=== PATIENT | male | born 1995 | race Caucasian/White ===

== ENCOUNTER 2020-06-01 08:52 | Emergency (ER) | payer SELFPAY ==
--- NOTE | 2020-06-01 09:51 | EDM.PDOC ---
ED HPI GENERAL MEDICAL PROBLEM - General Chief Complaint: Chest Pain Stated Complaint: CHEST PAIN Time Seen by Provider: 06/01/20 09:19 Source of Information: Reports: Patient, RN Notes Reviewed - History of Present Illness INITIAL COMMENTS - FREE TEXT/NARRATIVE: 25 yr old male with onset of palpitations during the night that have continued this morning. It seems to him that there is irregularity or fluttering type sensation but than he feels that his heart "is racing and pounding" He started getting some numbness in his hands and feet, at that point decided to come to the ED. He has not been ill. No recent cough, fever, chills or dyspnea. Left Chest Pain Score (Numeric/FACES): 2 - Related Data Allergies Allergy/AdvReac Type Severity Reaction Status Date / Time No Known Allergies Allergy Verified 06/01/20 09:08 Home Meds: Home Meds . [No Known Home Meds] 06/01/20 [History] Past Medical History Cardiovascular History: Reports: Other (See Below) Other Cardiovascular History: aortic stenosis Social & Family History - Tobacco Use Smoking Status *Q: Current Every Day Smoker Years of Tobacco use: 10 Packs/Tins Daily: 1 ED ROS GENERAL - Review of Systems Review Of Systems: See Below Constitutional: Denies: Fever, Chills, Diaphoresis HEENT: Reports: No Symptoms Respiratory: Denies: Shortness of Breath, Pleuritic Chest Pain, Cough Cardiovascular: Reports: Chest Pain, Lightheadedness, Palpitations GI/Abdominal: Denies: Abdominal Pain, Nausea, Vomiting Musculoskeletal: Denies: Shoulder Pain, Arm Pain, Back Pain Skin: Reports: No Symptoms Neurological: Reports: Dizziness ED EXAM, GENERAL - Physical Exam Exam: See Below General Appearance: Alert, No Apparent Distress Head: Atraumatic Neck: Supple Respiratory/Chest: No Respiratory Distress, Lungs Clear, Normal Breath Sounds Cardiovascular: Regular Rate, Rhythm, No Murmur GI/Abdominal: Soft, Non-Tender Back Exam: No: CVA Tenderness (L), CVA Tenderness (R) Extremities: No: Pedal Edema, Leg Pain, Increased Warmth, Redness EKG INTERPRETATION EKG Date: 06/01/20 Rhythm: NSR [place]: Normal P-Wave: Present QRS: Normal ST-T: Normal Course - Vital Signs Last Recorded V/S: Last Vital Signs Temp 97.8 F 06/01/20 09:03 Pulse 66 06/01/20 09:03 Resp 16 06/01/20 09:03 BP 144/94 H 06/01/20 09:03 Pulse Ox 98 06/01/20 09:03 - Orders/Labs/Meds Labs: Laboratory Tests 06/01/20 06/01/20 Range/Units 09:40 09:40 WBC 7.35 (4.23-9.07) K/mm3 RBC 5.80 (4.63-6.08) M/mm3 Hgb 15.4 (13.7-17.5) gm/dl Hct 46.6 (40.1-51.0) % MCV 80.3 (79.0-92.2) fl MCH 26.6 (25.7-32.2) pg MCHC 33.0 (32.2-35.5) g/dl RDW Std Deviation 40.5 (35.1-43.9) fL Plt Count 314 (163-337) K/mm3 MPV 10.3 (9.4-12.3) fl Neut % (Auto) 56.2 (34.0-67.9) % Lymph % (Auto) 30.6 (21.8-53.1) % [place] % (Auto) 7.2 (5.3-12.2) % Eos % (Auto) 4.8 (0.8-7.0) Baso % (Auto) 1.1 (0.1-1.2) % Neut # (Auto) 4.13 (1.78-5.38) K/mm3 Lymph # (Auto) 2.25 (1.32-3.57) K/mm3 [place] # (Auto) 0.53 (0.30-0.82) K/mm3 Eos # (Auto) 0.35 (0.04-0.54) K/mm3 Baso # (Auto) 0.08 (0.01-0.08) K/mm3 Sodium 144 (136-145) mEq/L Potassium 3.9 (3.5-5.1) mEq/L Chloride 108 H (98-107) mEq/L Carbon Dioxide 25 (21-32) mEq/L Anion Gap 14.9 (5-15) BUN 12 (7-18) mg/dL Creatinine 0.9 (0.7-1.3) mg/dL Est Cr Clr Drug Dosing 135.32 mL/min Estimated GFR (MDRD) > 60 (>60) mL/min BUN/Creatinine Ratio 13.3 L (14-18) Glucose 100 (74-106) mg/dL Calcium 9.2 (8.5-10.1) mg/dL Total Bilirubin 0.3 (0.2-1.0) mg/dL AST 28 (15-37) U/L ALT 60 (16-63) U/L Alkaline Phosphatase 67 (46-116) U/L Troponin I < 0.017 (0.00-0.056) ng/mL Total Protein 6.9 (6.4-8.2) g/dl Albumin 4.0 (3.4-5.0) g/dl Globulin 2.9 gm/dL Albumin/Globulin Ratio 1.4 (1-2) - Re-Assessments/Exams Free Text/Narrative Re-Assessment/Exam: 06/01/20 14:19 Labs nl including trop. He has been in sinus rythm, no ectopy, discharge instr. as documented. Departure - Departure Time of Disposition: 11:26 Disposition: Home, Self-Care 01 Condition: Fair Clinical Impression: Palpitations, Atypical chest pain Instructions: Palpitations, [id number] Referrals: PCP,None [Primary Care Provider] - Forms: ED Department Discharge, ED Return to Work/School Form Additional Instructions: 48 hr holter moniter, you are also being scheduled for cardiac echocardiogram. Try quit smoking. Avoid excess caffeine. See one of our [facility] providers in about 7 to 10 days for results. Call [phone] for appointment. Sepsis Event Note (ED) - Evaluation Sepsis Screening Result: No Definite Risk - Focused Exam Vital Signs: Vital Signs Temp Pulse Resp BP Pulse Ox 06/01/20 09:03 97.8 F 66 16 144/94 H 98
--- NOTE | 2020-06-01 10:04 | CR ---
Chest: Portable view of the chest was obtained. Comparison: No prior chest imaging is available. Heart size and mediastinum are normal. Lungs are clear with no acute parenchymal change. Bony structures are grossly intact. Impression: 1. Nothing acute is appreciated on portable chest x-ray. Diagnostic code #1 This report was dictated in MDT
== END 2020-06-01 11:52 | disposition home or self-care (01) ==
LOC: JD.ED 08:52
DX: R00.2 Palpitations (principal); R07.89 Other chest pain; F17.210 Nicotine dependence, cigarettes, uncomplicated
CPT/HCPCS: 36415; 71045; 71045-26; 80053; 84484; 85025; 93005; 93225; 93226; 99285-25

== ENCOUNTER 2020-06-20 13:41 | Emergency (ER) | payer SELFPAY ==
--- NOTE | 2020-06-20 15:20 | CT ---
Head CT Technique: Multiple axial sections through the brain were obtained. Intravenous contrast was not utilized. Findings: Ventricles along the basal cisterns and sulci over the convexities are within normal limits for the patient's age. No abnormal parenchymal densities are seen. No evidence of intracranial hemorrhage. No midline shift or mass-effect is seen. Bone window settings were reviewed. Visualized paranasal sinuses and mastoid sinuses show nothing acute. No acute calvarial finding is seen. Impression: 1. Nothing acute is seen on noncontrast head CT exam. Diagnostic code #1 This report was dictated in MDT
--- NOTE | 2020-06-20 15:35 | EDM.PDOC ---
ED HPI GENERAL MEDICAL PROBLEM - General Chief Complaint: Syncope Stated Complaint: HEART CONCERN/WEAK Time Seen by Provider: 06/20/20 13:54 Source of Information: Reports: Patient History Limitations: Reports: No Limitations - History of Present Illness INITIAL COMMENTS - FREE TEXT/NARRATIVE: The patient presents with near syncope. 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 He says this happened before for the past few months. He has been seeing Brenda Land and she has been working him up for that. He says the only thing found so far was some leaky heart valves. He has no fever, chills, cough, congestion, runny nose, chest pain, shortness of breath, or headache. He has no abdominal pain, nausea or vomiting. Onset: Sudden Duration: Minutes: Severity: Moderate Improves with: Reports: None Worsens with: Reports: None Associated Symptoms: Reports: No Other Symptoms - Related Data Allergies Allergy/AdvReac Type Severity Reaction Status Date / Time No Known Allergies Allergy Verified 06/20/20 13:51 Home Meds: Home Meds . [No Known Home Meds] 06/01/20 [History] Past Medical History Cardiovascular History: Reports: Other (See Below) Other Cardiovascular History: aortic stenosis Social & Family History - Tobacco Use Smoking Status *Q: Current Every Day Smoker Years of Tobacco use: 10 Packs/Tins Daily: 0.5 - Caffeine Use Caffeine Use: Reports: Coffee, Soda - Recreational Drug Use Recreational Drug Use: Yes Drug Use in Last 12 Months: Yes Recreational Drug Type: Reports: Marijuana/Hashish Recreational Drug Use Frequency: Weekly ED ROS GENERAL - Review of Systems Review Of Systems: See Below Constitutional: Reports: No Symptoms HEENT: Reports: No Symptoms Respiratory: Reports: No Symptoms Cardiovascular: Reports: No Symptoms Endocrine: Reports: No Symptoms GI/Abdominal: Reports: No Symptoms : Reports: No Symptoms Musculoskeletal: Reports: No Symptoms - Physical Exam Exam: See Below Exam Limited By: No Limitations General Appearance: Alert, No Apparent Distress Ears: Normal External Exam Nose: Normal Inspection Head Exam: Atraumatic, Normocephalic Neck: Normal Inspection Respiratory/Chest: No Respiratory Distress, Lungs Clear, Normal Breath Sounds Cardiovascular: Regular Rate, Rhythm, No Edema, No Murmur GI/Abdominal: Soft, Non-Tender, No Organomegaly, No Mass Neuro Exam (Abbreviated): Alert, Oriented, No Motor/Sensory Deficits EKG INTERPRETATION EKG Date: 06/20/20 Time: 15:00 Rhythm: NSR Rate (Beats/Min): 74 [place]: Normal P-Wave: Present QRS: Normal ST-T: Normal QT: Normal Course - Vital Signs Last Recorded V/S: Last Vital Signs Temp 97.1 F 06/20/20 13:46 Pulse 91 06/20/20 13:46 Resp 16 06/20/20 13:46 BP 140/77 06/20/20 13:46 Pulse Ox 97 06/20/20 13:46 - Orders/Labs/Meds Orders: Active Orders 24 hr Category Date Time Status Cardiac Monitoring [RC] . DIRECTED Care 06/20/20 14:16 Active EKG Documentation Completion [RC] STAT Care 06/20/20 14:16 Active Labs: Laboratory Tests 06/20/20 06/20/20 Range/Units 14:25 14:25 WBC 6.46 (4.23-9.07) K/mm3 RBC 5.48 (4.63-6.08) M/mm3 Hgb 14.8 (13.7-17.5) gm/dl Hct 44.2 (40.1-51.0) % MCV 80.7 (79.0-92.2) fl MCH 27.0 (25.7-32.2) pg MCHC 33.5 (32.2-35.5) g/dl RDW Std Deviation 40.1 (35.1-43.9) fL Plt Count 305 (163-337) K/mm3 MPV 10.1 (9.4-12.3) fl Neut % (Auto) 52.1 (34.0-67.9) % Lymph % (Auto) 35.8 (21.8-53.1) % [place] % (Auto) 8.7 (5.3-12.2) % Eos % (Auto) 2.3 (0.8-7.0) Baso % (Auto) 1.1 (0.1-1.2) % Neut # (Auto) 3.37 (1.78-5.38) K/mm3 Lymph # (Auto) 2.31 (1.32-3.57) K/mm3 [place] # (Auto) 0.56 (0.30-0.82) K/mm3 Eos # (Auto) 0.15 (0.04-0.54) K/mm3 Baso # (Auto) 0.07 (0.01-0.08) K/mm3 Sodium 141 (136-145) mEq/L Potassium 3.7 (3.5-5.1) mEq/L Chloride 104 (98-107) mEq/L Carbon Dioxide 26 (21-32) mEq/L Anion Gap 14.7 (5-15) BUN 13 (7-18) mg/dL Creatinine 1.0 (0.7-1.3) mg/dL Est Cr Clr Drug Dosing 121.79 mL/min Estimated GFR (MDRD) > 60 (>60) mL/min BUN/Creatinine Ratio 13.0 L (14-18) Glucose 102 (74-106) mg/dL Calcium 9.0 (8.5-10.1) mg/dL Magnesium 1.9 (1.8-2.4) mg/dl Total Bilirubin 0.2 (0.2-1.0) mg/dL AST 27 (15-37) U/L ALT 66 H (16-63) U/L Alkaline Phosphatase 72 (46-116) U/L Troponin I < 0.017 (0.00-0.056) ng/mL Total Protein 7.2 (6.4-8.2) g/dl Albumin 4.1 (3.4-5.0) g/dl Globulin 3.1 gm/dL Albumin/Globulin Ratio 1.3 (1-2) - Re-Assessments/Exams Free Text/Narrative Re-Assessment/Exam: 06/20/20 15:37 I ordered labs, EKG, and a CT of his head. The EKG shows a NSR with no acute changes. The CT of his head shows nothing acute. His labs look good. He feels better. Departure - Departure Time of Disposition: 15:40 Disposition: Home, Self-Care 01 Condition: Good Clinical Impression: Near syncope - Discharge Information *PRESCRIPTION DRUG MONITORING PROGRAM REVIEWED*: Not Applicable *COPY OF PRESCRIPTION DRUG MONITORING REPORT IN PATIENT ARUNA: Not Applicable Referrals: Naa Joaquin PA-C [Primary Care Provider] - 1 Week Additional Instructions: Drink plenty of fluids. Follow up with Brenda Joaquin. Please return if you are worse. Sepsis Event Note (ED) - Evaluation Sepsis Screening Result: No Definite Risk - Focused Exam Vital Signs: Vital Signs Temp Pulse Resp BP Pulse Ox 06/20/20 13:46 97.1 F 91 16 140/77 97 - My Orders Last 24 Hours: My Active Orders 06/20/20 14:16 Cardiac Monitoring [RC] . DIRECTED EKG Documentation Completion [RC] STAT - Assessment/Plan Last 24 Hours: My Active Orders 06/20/20 14:16 Cardiac Monitoring [RC] . DIRECTED EKG Documentation Completion [RC] STAT
== END 2020-06-20 15:50 | disposition home or self-care (01) ==
LOC: JD.ED 13:41
DX: R55 Syncope and collapse (principal); F17.210 Nicotine dependence, cigarettes, uncomplicated
CPT/HCPCS: 36415; 70450; 70450-26; 80053; 83735; 84484; 85025; 93010; 99282; 99284-25

== ENCOUNTER 2025-08-22 15:45 | Emergency (ER) | payer BC ==
[2025-08-22] MEDS ORDERED: Sodium Chloride 0.9% 10 ML Syringe FLUSH PRN (16:12)
[2025-08-22 16:59] LABS: BASOPHILS ABSOLUTE AUTO 0.1 K/mm3 (0.0-0.2); BASOPHILS PERCENT AUTO 1.1 % (0.0-1.0); EOSINOPHILS ABSOLUTE AUTO 0.3 K/mm3 (0.0-0.4); EOSINOPHILS PERCENT AUTO 3.2 % (0.0-6.0); IMMATURE GRAN ABSOLUTE AUTO 0.02 K/mm3 (0.00-0.05); IMMATURE GRAN PERCENT AUTO 0.2 % (0.0-0.4); LYMPHOCYTES ABSOLUTE AUTO 2.5 K/mm3 (1.0-4.8); LYMPHOCYTES PERCENT AUTO 26.9 % (24.0-44.0); MEAN PLATELET VOLUME 10.2 fl (9.4-12.4); MONOCYTES ABSOLUTE AUTO 0.5 K/mm3 (0.0-0.8); MONOCYTES PERCENT AUTO 5.9 % (0.0-8.0); NEUTROPHILS ABSOLUTE AUTO 5.8 K/mm3 (1.8-7.7); NEUTROPHILS PERCENT AUTO 62.7 % (41.0-71.0); NRBC ABSOLUTE 0.00 (0.00-0.02); NRBC PERCENT 0.0 % (0.0-0.2); PLATELET COUNT,PLT 337 K/mm3 (150-400); RED BLOOD CELL COUNT 5.60 M/mm3 (4.52-5.90); WHITE BLOOD CELL COUNT,WBC 9.17 K/mm3 (3.9-11.3)
[2025-08-22 17:22] LABS: BLOOD UREA NITROGEN,BUN 13.0 mg/dL (7-18); CARBON DIOXIDE,CO2 24.0 mEq/L (21-32); CHLORIDE,CL 106.0 mEq/L (98-107); CREATININE 1.0 mg/dL (0.7-1.3); EST CRCL DRUG DOSING (CG) 116.4 mL/min; ESTIMATED GFR 103.0 mL/min (>60); GLUCOSE RANDOM 104.0 mg/dL (70-99); POTASSIUM,K 3.6 mEq/L (3.5-5.1); SODIUM,NA 139.0 mEq/L (136-145); TROPONIN I HIGH SENSITIVITY 6.0 pg/mL (<=76)
[2025-08-22 17:23] LABS: ETHANOL BLOOD MEDICAL 0.0 gm% (0.00)
== END 2025-08-22 20:31 | disposition home or self-care (01) ==
LOC: JD.ED 15:45
DX: R07.89 Other chest pain (principal)
CPT/HCPCS: 36415; 71045; 71045-26; 80048; 80307; 84484; 85025; 85379; 93005; 99285

== ENCOUNTER 2025-08-30 11:27 | Emergency (ER) | payer BC ==
[2025-08-30 11:40] LABS: BASOPHILS ABSOLUTE AUTO 0.1 K/mm3 (0.0-0.2); BASOPHILS PERCENT AUTO 1.2 % (0.0-1.0); EOSINOPHILS ABSOLUTE AUTO 0.2 K/mm3 (0.0-0.4); EOSINOPHILS PERCENT AUTO 2.1 % (0.0-6.0); IMMATURE GRAN ABSOLUTE AUTO 0.03 K/mm3 (0.00-0.05); IMMATURE GRAN PERCENT AUTO 0.3 % (0.0-0.4); LYMPHOCYTES ABSOLUTE AUTO 3.8 K/mm3 (1.0-4.8); LYMPHOCYTES PERCENT AUTO 33.4 % (24.0-44.0); MEAN PLATELET VOLUME 9.9 fl (9.4-12.4); MONOCYTES ABSOLUTE AUTO 0.7 K/mm3 (0.0-0.8); MONOCYTES PERCENT AUTO 5.7 % (0.0-8.0); NEUTROPHILS ABSOLUTE AUTO 6.5 K/mm3 (1.8-7.7); NEUTROPHILS PERCENT AUTO 57.3 % (41.0-71.0); NRBC ABSOLUTE 0.00 (0.00-0.02); NRBC PERCENT 0.0 % (0.0-0.2); PLATELET COUNT,PLT 388 K/mm3 (150-400); RED BLOOD CELL COUNT 6.60 M/mm3 (4.52-5.90); WHITE BLOOD CELL COUNT,WBC 11.34 K/mm3 (3.9-11.3)
[2025-08-30 12:03] LABS: A/G RATIO 1.3 (1-2); ALANINE AMINOTRANSFERASE,ALT 55.0 U/L (16-63); ASPARTATE AMNIOTRANSFERASE,AST 29.0 U/L (15-37); BILIRUBIN TOTAL 0.7 mg/dL (0.2-1.0); BLOOD UREA NITROGEN,BUN 13.0 mg/dL (7-18); CARBON DIOXIDE,CO2 24.0 mEq/L (21-32); CHLORIDE,CL 103.0 mEq/L (98-107); CREATININE 1.1 mg/dL (0.7-1.3); EST CRCL DRUG DOSING (CG) 105.82 mL/min; ESTIMATED GFR 91.0 mL/min (>60); GLUCOSE RANDOM 91.0 mg/dL (70-99); POTASSIUM,K 3.8 mEq/L (3.5-5.1); PROTEIN TOTAL,TP 8.3 g/dl (6.4-8.2); SODIUM,NA 140.0 mEq/L (136-145); TROPONIN I HIGH SENSITIVITY 6.0 pg/mL (<=76)
[2025-08-30] MEDS ORDERED: Sodium Chloride 0.9% 10 ML Syringe FLUSH PRN (12:11)
[2025-08-30] MEDS: Iopamidol 612 MG/ML 100 ML Bottle IVPUSH ONE (12:20)
[2025-08-30] MEDS: Sodium Chloride 0.9% 10 ML Syringe FLUSH PRN (12:20)
[2025-08-30] MEDS: Ketorolac 30 MG/ML SDV IVPUSH ONE (13:30)
== END 2025-08-30 15:35 | disposition home or self-care (01) ==
LOC: JD.ED 11:27
DX: R55 Syncope and collapse (principal); E86.0 Dehydration; F17.200 Nicotine dependence, unspecified, uncomplicated
CPT/HCPCS: 36415; 71045; 71275; 80053; 83735; 84484; 85025; 85379; 93005; 93246; 96361; 96374; 99285; J1885; J7030; Q9967; 93010; 99283

== ENCOUNTER 2025-08-30 22:25 | Emergency (ER) | payer BC ==
[2025-08-31 01:53] LABS: BASOPHILS ABSOLUTE AUTO 0.1 K/mm3 (0.0-0.2); BASOPHILS PERCENT AUTO 1.2 % (0.0-1.0); EOSINOPHILS ABSOLUTE AUTO 0.4 K/mm3 (0.0-0.4); EOSINOPHILS PERCENT AUTO 3.4 % (0.0-6.0); IMMATURE GRAN ABSOLUTE AUTO 0.02 K/mm3 (0.00-0.05); IMMATURE GRAN PERCENT AUTO 0.2 % (0.0-0.4); LYMPHOCYTES ABSOLUTE AUTO 3.5 K/mm3 (1.0-4.8); LYMPHOCYTES PERCENT AUTO 33.6 % (24.0-44.0); MEAN PLATELET VOLUME 10.9 fl (9.4-12.4); MONOCYTES ABSOLUTE AUTO 0.8 K/mm3 (0.0-0.8); MONOCYTES PERCENT AUTO 7.3 % (0.0-8.0); NEUTROPHILS ABSOLUTE AUTO 5.6 K/mm3 (1.8-7.7); NEUTROPHILS PERCENT AUTO 54.3 % (41.0-71.0); NRBC ABSOLUTE 0.00 (0.00-0.02); NRBC PERCENT 0.0 % (0.0-0.2); PLATELET COUNT,PLT 360 K/mm3 (150-400); RED BLOOD CELL COUNT 5.79 M/mm3 (4.52-5.90); WHITE BLOOD CELL COUNT,WBC 10.37 K/mm3 (3.9-11.3)
[2025-08-31 02:11] LABS: PHOSPHORUS 3.9 mg/dL (2.6-4.7)
[2025-08-31 02:22] LABS: A/G RATIO 1.4 (1-2); ALANINE AMINOTRANSFERASE,ALT 50.0 U/L (16-63); ASPARTATE AMNIOTRANSFERASE,AST 22.0 U/L (15-37); BILIRUBIN TOTAL 0.5 mg/dL (0.2-1.0); BLOOD UREA NITROGEN,BUN 15.0 mg/dL (7-18); CARBON DIOXIDE,CO2 22.0 mEq/L (21-32); CHLORIDE,CL 106.0 mEq/L (98-107); CREATININE 1.1 mg/dL (0.7-1.3); EST CRCL DRUG DOSING (CG) 105.82 mL/min; ESTIMATED GFR 91.0 mL/min (>60); GLUCOSE RANDOM 113.0 mg/dL (70-99); POTASSIUM,K 3.9 mEq/L (3.5-5.1); PROTEIN TOTAL,TP 7.4 g/dl (6.4-8.2); SODIUM,NA 141.0 mEq/L (136-145); TROPONIN I HIGH SENSITIVITY 6.0 pg/mL (<=76)
== END 2025-08-31 03:55 | disposition home or self-care (01) ==
LOC: JD.ED 22:25
DX: R00.2 Palpitations (principal); R23.2 Flushing
CPT/HCPCS: 36415; 80053; 83605; 83735; 84100; 84484; 85025; 93005; 99285; J7030; 93010; 99284

== ENCOUNTER 2025-08-31 17:50 | Emergency (ER) | payer BC ==
[2025-08-31] MEDS ORDERED: Sodium Chloride 0.9% 10 ML Syringe FLUSH PRN (17:58)
[2025-08-31] MEDS: Sodium Chloride 0.9% 10 ML Syringe FLUSH ONE (18:58)
[2025-08-31] MEDS: Iopamidol 612 MG/ML 100 ML Bottle IVPUSH ONE (18:58)
[2025-08-31] MEDS: Magnesium Citrate Solution 296 ML Bottle PO ONE (19:50)
== END 2025-08-31 22:55 | disposition home or self-care (01) ==
LOC: JD.ED 17:50
DX: K59.00 Constipation, unspecified (principal)
CPT/HCPCS: 74177; 99284; A9270; Q9967; 99283